=== PATIENT | female | born 1965 | race Caucasian/White ===

== ENCOUNTER 2018-03-12 11:08 | Emergency (ER) | payer BC ==
[~2018-03-12] VITALS: Wt 54.4 kg
[2018-03-12] MEDS ORDERED: VALTREX1000 MG PO (11:25)
[2018-03-12] MEDS ORDERED: ULTRAM50 MG PO ×2 (11:25→11:26)
[2018-03-12] MEDS ORDERED: IBU800 MG PO (11:25)
[2018-03-12] MEDS ORDERED: TYLENOL325 M1 PO (11:25)
== END 2018-03-12 11:30 | disposition home or self-care (01) ==
LOC: ED 11:08
DX: B02.9 Zoster without complications (principal)

== ENCOUNTER 2018-03-16 20:10 | Emergency (ER) | payer BC ==
[~2018-03-16] VITALS: Ht 157.4 cm; Wt 54.4 kg
[~2018-03-16 20:10] MED LIST: IBU800 MG PO; TYLENOL325 M1 PO; ULTRAM50 MG PO; VALTREX1000 MG PO
[2018-03-16] MEDS ORDERED: CEPHALEXIN500 M1 PO (20:35)
== END 2018-03-16 20:39 | disposition home or self-care (01) ==
LOC: ED 20:10
DX: B02.9 Zoster without complications (principal); L03.116 Cellulitis of left lower limb; Z98.51 Tubal ligation status; Z98.890 Other specified postprocedural states

== ENCOUNTER → 2018-07-09 | Outpatient (CLI) | payer BC ==
[~2018-07-09] MED LIST changes: +CEPHALEXIN500 M1 PO
== END | disposition home or self-care (01) ==
LOC: RAD 13:17
DX: R07.9 Chest pain, unspecified (principal); F17.200 Nicotine dependence, unspecified, uncomplicated; W19.XXXA Unspecified fall, initial encounter; Y93.89 Activity, other specified; Y92.89 Other specified places as the place of occurrence of the external cause; Y99.8 Other external cause status

== ENCOUNTER → 2018-12-27 | Day surgery (SDC) | payer BC ==
[~2018-12-27] VITALS: Ht 157.4 cm; Wt 51.3 kg
[~2018-12-27] MED LIST changes: +LEXAPRO10 MG PO; +Synthroid,Lev100 MCG PO
--- NOTE | ~2018-12-27 | O ---
[place], [place] OPERATIVE NOTE NAME: ISELA CABRERA UNIT #: [id number] ROOM: DOCTOR: HONEY RAMON MD BIRTHDATE: [birth year] DOS: PREOPERATIVE DIAGNOSIS: Cataract, left eye. POSTOPERATIVE DIAGNOSIS: Cataract, left eye. OPERATION: Extracapsular cataract extraction by phacoemulsification with posterior chamber intraocular lens implantation, left eye. ANESTHESIA: Monitored standby. OPERATIVE FINDINGS AND PROCEDURE: 2% Xylocaine topical anesthetic gel was applied to the eye in the preop area. The patient was taken to the operating room and prepped and draped in the standard fashion for sterile intraocular surgery. A time out procedure was performed verifying correct patient, correct site and corrects lens with Pa Ramon M.D. The operating microscope was swung into position and the lid speculum was inserted. Using a Kathy paracentesis blade, a paracentesis was made through clear cornea. Viscoelastic was used to fill the anterior chamber. Using a metal keratome a 2.4 mm self-sealing clear corneal cataract incision was made temporally at the limbus. Using a pre-bent 25 gauge cystotome needle, a standard continuous curvilinear capsulorrhexis was performed. The anterior capsule was removed with forceps. The lens nucleus was hydrodissected and phacoemulsified in the posterior chamber. Cortical material was removed with the irrigation aspiration hand piece and the posterior capsule was then polished with a curet under irrigation. The posterior chamber and capsular bag were filled with viscoelastic. A posterior chamber intraocular lens manufactured by: [employer], Model #[id number], and 21.5 diopters in strength were then inserted into the posterior chamber and within the capsular bag using the lens cartridge and injector system. Viscoelastic was removed using the irrigation aspiration handpiece. The anterior chamber was filled with balanced salt solution through the paracentesis. Both the paracentesis site and cataract incisions were hydrated with BSS and verified to be water-tight and self-sealing. Cefuroxime 1 mg/0.1 mL was injected into the anterior chamber through the paracentesis site. The incision checked to be water-tight using a Weck-Hoda sponge. The integrity of the cataract wound and ocular tension were checked. Lid speculum and drapes were removed. The patient was transferred from the operating room to the recovery room in satisfactory condition. [place], [place] OPERATIVE NOTE NAME: ISELA CABRERA UNIT #: [id number] ROOM: DOCTOR: HONEY RAMON MD BIRTHDATE: [birth year] HONEY RAMON MD CM:OPRECORD:OPERATIVE NOTE [id number] [id number] HONEY RAMON MD 12/27/18 1449 interface
[2018-12-27 13:05] VITALS: BP 154/88
[2018-12-27 13:47] VITALS: BP 146/96
[2018-12-27 14:02] VITALS: BP 153/88
[2018-12-27 14:18] VITALS: BP 147/88
== END | disposition home or self-care (01) ==
LOC: SDC 12-22 13:15
DX: H25.812 Combined forms of age-related cataract, left eye (principal); F17.210 Nicotine dependence, cigarettes, uncomplicated; F41.9 Anxiety disorder, unspecified; H54.40 Blindness, one eye, unspecified eye; Z79.899 Other long term (current) drug therapy; Z98.890 Other specified postprocedural states; Z98.51 Tubal ligation status; Z72.89 Other problems related to lifestyle

== ENCOUNTER → 2020-05-15 | Outpatient (CLI) | payer SELFPAY ==
[~2020-05-15] MED LIST changes: +Synthroid,Levo88 MCG PO
[2020-05-15 13:46] LABS: URINE AMPHETAMINES < 1000 (1000ng/ml); URINE BARBITURATES < 200 (200ng/ml); URINE BENZODIAZEPINES < 200 (200ng/ml); URINE CANNABINOIDS (THC) < 50 (50ng/ml); URINE COCAINE < 300 (300ng/ml); URINE METHADONE < 300 (300ng/ml); URINE OPIATES < 300 (300ng/ml); URINE PHENCYCLIDINE < 25 (25ng/ml)
[2020-05-15 13:55] LABS: BILIRUBIN NEGATIVE (NEGATIVE); BLOOD TRACE-LYSED (NEGATIVE); CLARITY CLEAR (CLEAR); COLOR STRAW (YELLOW); GLUCOSE NEGATIVE (NEGATIVE); KETONE NEGATIVE (NEGATIVE); NITRITE NEGATIVE (NEGATIVE); SPECIFIC GRAVITY 1.005 (1.005-1.030); UROBILINOGEN 0.2 E.U./dl (0.2-1.0)
[2020-05-15 13:56] LABS: LEUKO ESTERASE NEGATIVE (NEGATIVE)
[2020-05-15 14:07] LABS: BASO # 0.1 10*3/uL (0.0-0.1); BASO % 0.7 % (0.0-1.0); EOS # 0.1 10*3/uL (0.0-0.4); EOS % 1.2 % (1.0-4.0); HEMATOCRIT 35.9 % (37.0-47.0); LYMPH # 3.2 10*3/uL (1.3-4.4); LYMPH % 33.7 % (27.0-41.0); MEAN CELL VOLUME 101.1 fl (81.0-99.0); MEAN CORPUSCULAR HGB 33.5 pg (27.0-31.0); MEAN CORPUSCULAR HGB CONC 33.1 g/dl (33.0-37.0); MEAN PLATELET VOLUME 9.2 fl (9.6-12.3); MONO # 0.9 10*3/uL (0.1-1.0); MONO % 9.9 % (3.0-9.0); NEUT # 5.1 10*3/uL (2.3-7.9); NEUT % 54.3 % (47.0-73.0); PLATELET COUNT AUTOMATED 322 10*3/uL (130-400); RED BLOOD COUNT 3.55 10*6/uL (4.10-5.10); RED CELL DISTRI WIDTH 13.2 % (0-14.5); WHITE BLOOD COUNT 9.5 10*3/uL (4.8-10.8)
[2020-05-15 14:37] LABS: BUN 16 mg/dl (7-24); CHLORIDE 102 mmol/L (98-107); CPK 427 U/L (26-192); CREATININE 0.95 mg/dL (0.55-1.02); POTASSIUM 3.9 mmol/L (3.5-5.1); SODIUM 135 mmol/L (136-145)
[2020-05-15 14:57] LABS: FREE T4 1.16 ng/dl (0.76-1.46)
[2020-05-16 07:06] LABS: RHEUMATOID ARTHRITIS FACTOR <10.0 IU/mL (0.0-13.9)
[2020-05-16 11:07] LABS: CREATININE,URINE 16.7 mg/dL (Not Estab.)
[2020-05-17 00:06] LABS: CCP ANTIBODIES IGG/IGA 4 units (0-19)
== END | disposition home or self-care (01) ==
LOC: RESCLI 01:15
PROVIDERS: Student in an Organized Health Care Education/Training Program; ATTEND Internal Medicine Nephrology
DX: Z51.81 Encounter for therapeutic drug level monitoring (principal); E11.9 Type 2 diabetes mellitus without complications; I10 Essential (primary) hypertension; G45.9 Transient cerebral ischemic attack, unspecified; N32.81 Overactive bladder; K21.9 Gastro-esophageal reflux disease without esophagitis

== ENCOUNTER → 2020-05-28 | Outpatient (CLI) | payer SELFPAY | END | disposition home or self-care (01) | LOC: US 08:30 | PROVIDERS: ATTEND Emergency Medicine | DX: R10.9 Unspecified abdominal pain (principal) ==

== ENCOUNTER → 2020-06-04 | Outpatient (CLI) | payer SELFPAY | END | disposition home or self-care (01) | LOC: MAMMO 10:06 | PROVIDERS: ATTEND Student in an Organized Health Care Education/Training Program | DX: Z12.31 Encounter for screening mammogram for malignant neoplasm of breast (principal); N64.89 Other specified disorders of breast ==

== ENCOUNTER → 2021-10-09 | Outpatient (CLI) | payer OTHER | END | disposition home or self-care (01) | LOC: COVID19 15:31 | PROVIDERS: ATTEND Family Medicine | DX: Z11.52 Encounter for screening for COVID-19 (principal) ==

== ENCOUNTER 2021-11-06 13:14 | Emergency (ER) | payer BC ==
[~2021-11-06] VITALS: Ht 157.4 cm; Wt 56.2 kg
[2021-11-06 14:43] LABS: ACT PARTIAL THROMBO TIME 31.9 SECONDS (20.0-32.1)
[2021-11-06 14:59] LABS: BASO # 0.1 10*3/uL (0.0-0.1); BASO % 1.1 % (0.0-1.0); EOS # 0.1 10*3/uL (0.0-0.4); EOS % 1.1 % (1.0-4.0); HEMATOCRIT 36.5 % (37.0-47.0); LYMPH # 3.1 10*3/uL (1.3-4.4); LYMPH % 33.7 % (27.0-41.0); MEAN CELL VOLUME 100.8 fl (81.0-99.0); MEAN CORPUSCULAR HGB 33.4 pg (27.0-31.0); MEAN CORPUSCULAR HGB CONC 33.2 g/dl (33.0-37.0); MEAN PLATELET VOLUME 9.7 fl (9.6-12.3); MONO # 0.7 10*3/uL (0.1-1.0); MONO % 8.1 % (3.0-9.0); NEUT % 55.1 % (47.0-73.0); PLATELET COUNT AUTOMATED 367 10*3/uL (130-400); RED BLOOD COUNT 3.62 10*6/uL (4.10-5.10); RED CELL DISTRI WIDTH 13.5 % (0-14.5); WHITE BLOOD COUNT 9.1 10*3/uL (4.8-10.8)
[2021-11-06 15:14] LABS: ALBUMIN 4.4 gm/dl (3.1-4.5); CHLORIDE 98 mmol/L (98-107); CREATININE 1.73 mg/dL (0.55-1.02); LIPASE 231 U/L (73-393); POTASSIUM 3.8 mmol/L (3.5-5.1); SGOT/AST 70 IU/L (3-35); SGPT/ALT 39 U/L (12-78); SODIUM 133 mmol/L (136-145); TOTAL PROTEIN 9.1 gm/dL (6.4-8.2)
[2021-11-06 15:17] LABS: ALKALINE PHOSPHATASE 104 U/L (45-117); BUN 18 mg/dl (7-24)
[2021-11-06] MEDS ORDERED: NORVASC5 MG PO (18:17)
== END 2021-11-06 18:33 | disposition home or self-care (01) ==
LOC: ED 13:14
PROVIDERS: Emergency Medicine
DX: I10 Essential (primary) hypertension (principal); Z90.89 Acquired absence of other organs; Z98.890 Other specified postprocedural states; Z98.51 Tubal ligation status

== ENCOUNTER → 2021-11-19 | Outpatient (CLI) | payer BC ==
[~2021-11-19] MED LIST changes: +NORVASC5 MG PO
== END | disposition home or self-care (01) ==
LOC: RAD 17:53
PROVIDERS: ATTEND Nurse Practitioner Family
DX: R07.81 Pleurodynia (principal)